=== PATIENT | female | born 1950 | race African-American/Black ===

== ENCOUNTER 2020-09-27 16:20 | Emergency (ER) | payer OTHER ==
[~2020-09-27] VITALS: Ht 157.5 cm; Wt 71.7 kg
[2020-09-27 18:59] VITALS: BP 111/71
== END 2020-09-27 18:59 | disposition home or self-care (01) ==
LOC: ER 16:21
DX: R09.89 Other specified symptoms and signs involving the circulatory and respiratory systems (principal); M47.812 Spondylosis without myelopathy or radiculopathy, cervical region; I70.90 Unspecified atherosclerosis
CPT/HCPCS: 70360; 70490

== ENCOUNTER 2021-01-07 23:16 | Emergency (ER) | payer OTHER ==
[~2021-01-07] VITALS: Ht 157.5 cm; Wt 69.4 kg
[2021-01-08] LABS: Hemoglobin 10.2 g/dL (12.2-16.2); Mean Corpuscular Hemoglobin 27.4 pg (28.0-32.0); Mean Corpuscular Volume 83.1 fL (80.0-100.0); Platelet Count (auto) 639 10^3/uL (140-450); Red Blood Cells 3.74 10^6/uL (4.0-5.20); Red Cell Distribution Width 15.8 % (11.8-14.3); White Blood Cell 7.9 10^3/uL (4.4-10.8)
[2021-01-08 00:02] LABS: INR 1.01 (0.9-1.15); Partial Thromboplastin Time 24.9 sec (23.0-31.2)
[2021-01-08 00:04] LABS: Band Neutrophils % (manual) 0; Blast Cells 0; Metamyelocytes % 0; Promyelocytes % 0; Reactive Lymphocytes 0
[2021-01-08 00:05] LABS: Chloride 99 mmol/L (98-107); Potassium 4.4 mmol/L (3.5-5.1); Sodium 134 mmol/L (136-145)
[2021-01-08 00:14] LABS: Alanine Aminotransferase 61 U/L (13-56); Albumin 3.4 g/dL (3.4-5.0); Alkaline Phosphatase 103 U/L (45-117); Anion Gap 6 (5-15); Aspartate Aminotransferase 72 U/L (15-37); BUN/Creatinine Ratio 19.4; Bilirubin, Total 0.2 mg/dL (0.2-1.0); Blood Urea Nitrogen 24 mg/dL (7-18); Calcium 11.4 mg/dL (8.5-10.1); Carbon Dioxide 29 mmol/L (21-32); GFR African American 55 mL/min; GFR Non-African American 45 mL/min; Glucose 101 mg/dL (74-106); Total Protein 8.2 g/dL (6.4-8.2)
[2021-01-08 00:29] LABS: Basophils % (manual) 1 (0.0-2.0); Eosinophils % (manual) 4 (0-7); Lymphocytes % (manual) 30 (10.0-50.0); Monocytes % (manual) 6 (0-12); Myelocytes % 1
[2021-01-08 01:03] VITALS: BP 175/92
== END 2021-01-08 01:08 | disposition left against medical advice (07) ==
LOC: ER 23:21
DX: R07.89 Other chest pain (principal); R06.02 Shortness of breath; Z53.21 Procedure and treatment not carried out due to patient leaving prior to being seen by health care provider
CPT/HCPCS: 36415; 71045; 80053; 83880; 84484; 85007; 85027; 85610; 85730

== ENCOUNTER 2022-08-25 01:47 | Emergency (ER) | payer OTHER ==
[~2022-08-25] VITALS: Ht 157.5 cm; Wt 73.7 kg
[2022-08-25 02:56] LABS: Basophils # (auto) 0.1 10 ^3/uL (0-0.2); Basophils % (auto) 1.8 % (0.0-2.0); Eosinophils # (auto) 0.6 10 ^3/uL (0-0.8); Eosinophils % (auto) 8.5 % (0.0-7.0); Hematocrit 32.1 % (36.0-46.0); Hemoglobin 10.7 g/dL (12.2-16.2); Lymphocytes # (auto) 1.8 10 ^3/uL (0.4-5.4); Lymphocytes % (auto) 24.3 % (10.0-50.0); Mean Corpuscular Hemoglobin 28.9 pg (28.0-32.0); Mean Corpuscular Hgb Conc. 33.4 g/dL (32.0-36.0); Mean Corpuscular Volume 86.6 fL (80.0-100.0); Monocytes # (auto) 0.8 10 ^3/uL (0-1.3); Neutrophils # (auto) 4.1 10 ^3/uL (1.6-8.6); Neutrophils % (auto) 55.4 % (37.0-80.0); Red Blood Cells 3.71 10^6/uL (4.0-5.20); Red Cell Distribution Width 15.6 % (11.8-14.3); White Blood Cell 7.5 10^3/uL (4.4-10.8)
[2022-08-25 03:12] LABS: INR 0.97 (0.9-1.15); Partial Thromboplastin Time 24.7 sec (24.6-33.4)
[2022-08-25 03:35] LABS: Albumin 3.6 g/dL (3.4-5.0); BUN/Creatinine Ratio 24.6; Magnesium 2.4 mg/dL (1.6-2.6); Potassium 3.9 mmol/L (3.5-5.1)
[2022-08-25 03:38] LABS: Bilirubin, Total 0.2 mg/dL (0.2-1.0); Total Protein 7.7 g/dL (6.4-8.2)
[2022-08-25 08:11] VITALS: BP 132/84
== END 2022-08-25 08:12 | disposition home or self-care (01) ==
LOC: ER 01:47
DX: R07.89 Other chest pain (principal); I10 Essential (primary) hypertension
CPT/HCPCS: 36415; 71046; 80053; 83735; 83880; 84484; 85025; 85610; 85730; 93005; 99285; J7030

== ENCOUNTER 2023-06-22 12:07 | Inpatient (IN) | payer OTHER ==
[~2023-06-22] VITALS: Ht 157.5 cm; Wt 75.9 kg
[2023-06-22 12:44] LABS: Basophils # (auto) 0.1 10 ^3/uL (0-0.2); Basophils % (auto) 1.3 % (0.0-2.0); Eosinophils # (auto) 0.5 10 ^3/uL (0-0.8); Eosinophils % (auto) 7.7 % (0.0-7.0); Hematocrit 34.2 % (36.0-46.0); Hemoglobin 11.1 g/dL (12.2-16.2); Lymphocytes # (auto) 1.9 10 ^3/uL (0.4-5.4); Lymphocytes % (auto) 30.6 % (10.0-50.0); Mean Corpuscular Hemoglobin 28.4 pg (28.0-32.0); Mean Corpuscular Hgb Conc. 32.5 g/dL (32.0-36.0); Mean Corpuscular Volume 87.3 fL (80.0-100.0); Monocytes # (auto) 0.6 10 ^3/uL (0-1.3); Monocytes % (auto) 9.6 % (0.0-12.0); Neutrophils # (auto) 3.1 10 ^3/uL (1.6-8.6); Neutrophils % (auto) 50.8 % (37.0-80.0); Red Blood Cells 3.91 10^6/uL (4.0-5.20); Red Cell Distribution Width 15.7 % (11.8-14.3); White Blood Cell 6.2 10^3/uL (4.4-10.8)
[2023-06-22] MEDS ORDERED: ASPirin 81 mg TAB PO ONE (13:00)
[2023-06-22] MEDS ORDERED: NITROGLYCERIN 0.2MG/HR TOPICAL PATCH TD ONE (13:00)
[2023-06-22 13:01] LABS: Albumin 3.8 g/dL (3.4-5.0); Calcium 9.2 mg/dL (8.5-10.1); Potassium 4.2 mmol/L (3.5-5.1)
[2023-06-22 13:04] LABS: BUN/Creatinine Ratio 22.1 (10.0-20.0); Bilirubin, Total 0.3 mg/dL (0.2-1.0); Total Protein 7.4 g/dL (6.4-8.2)
[2023-06-22] MEDS ORDERED: NITROGLYCERIN 2% OINT 1GM PKG TD ONE (13:15)
[2023-06-22 13:52] LABS: Urine Bacteria FEW /hpf (None Seen); Urine Blood Negative /uL (Negative); Urine Clarity Clear (Clear); Urine Color Colorless (Yellow); Urine Protein, UAD Negative (Negative); Urine Specific Gravity 1.008 (1.001-1.035); Urine Urobilinogen Normal (Negative); Urine WBC 5 /hpf (0 - 5)
[2023-06-22] MEDS ORDERED: DAPA1TAB4 PO (14:38)
[2023-06-22] MEDS ORDERED: ATOR10TA PO (14:38)
[2023-06-22] MEDS ORDERED: cefTRIAXone 1GM/50ML D5W 50 ML IV ONE (14:45)
[2023-06-22 14:47] VITALS: PULSE 85; RESP 18; O2SAT 95
[2023-06-22] MEDS ORDERED: MORPHINE SULFATE 4 MG/ML SYR/VIAL IV PRN (15:00)
[2023-06-22] MEDS ORDERED: NITROGLYCERIN 0.4 MG SL TAB SL PRN (15:00)
[2023-06-22] MEDS ORDERED: ACETAMINOPHEN 325 MG TAB PO PRN (15:00)
[2023-06-22] MEDS ORDERED: ONDANSETRON HCL 4 MG/2 ML VIAL IV PRN (15:00)
[2023-06-22 15:18] LABS: INR 0.98 (0.9-1.15); Partial Thromboplastin Time 27.9 SEC (24.5-34.5); Prothrombin Time 10.3 sec (9.3-11.8)
[2023-06-22 16:13] LABS: INR 0.99 (0.9-1.15); Prothrombin Time 10.4 sec (9.3-11.8)
[2023-06-22] MEDS: ATORVASTATIN 20 MG TAB PO SCH (18:07)
[2023-06-22] MEDS: PANTOPRAZOLE 40 MG TAB PO SCH (22:10)
[2023-06-22 23:21] VITALS: PULSE 91; RESP 20; O2SAT 94
[2023-06-23 06:18] LABS: Basophils # (auto) 0.1 10 ^3/uL (0-0.2); Basophils % (auto) 1.6 % (0.0-2.0); Eosinophils # (auto) 0.5 10 ^3/uL (0-0.8); Eosinophils % (auto) 6.3 % (0.0-7.0); Hematocrit 33.8 % (36.0-46.0); Hemoglobin 10.9 g/dL (12.2-16.2); Lymphocytes # (auto) 2.4 10 ^3/uL (0.4-5.4); Lymphocytes % (auto) 30.3 % (10.0-50.0); Mean Corpuscular Hemoglobin 28.5 pg (28.0-32.0); Mean Corpuscular Hgb Conc. 32.3 g/dL (32.0-36.0); Mean Corpuscular Volume 88.2 fL (80.0-100.0); Monocytes # (auto) 0.8 10 ^3/uL (0-1.3); Monocytes % (auto) 9.8 % (0.0-12.0); Neutrophils # (auto) 4.1 10 ^3/uL (1.6-8.6); Nucleated Red Blood Cells % 0.1 %; Red Blood Cells 3.83 10^6/uL (4.0-5.20); Red Cell Distribution Width 16.1 % (11.8-14.3); White Blood Cell 7.9 10^3/uL (4.4-10.8)
[2023-06-23 06:29] LABS: Potassium 4.1 mmol/L (3.5-5.1)
[2023-06-23 06:39] LABS: Albumin 3.6 g/dL (3.4-5.0); BUN/Creatinine Ratio 17.6 (10.0-20.0); Bilirubin, Total 0.4 mg/dL (0.2-1.0); Calcium 9.2 mg/dL (8.5-10.1); Total Protein 7.6 g/dL (6.4-8.2)
[2023-06-23 08:00] VITALS: PULSE 85; RESP 14; O2SAT 95
[2023-06-23] MEDS: DOCUSATE SOD 100 MG CAP PO SCH (11:20)
[2023-06-23] MEDS: cefTRIAXone 1GM/50ML D5W 50 ML IV SCH (11:20)
[2023-06-23] MEDS: HCTZ 25 MG TAB PO SCH (11:21)
[2023-06-23] MEDS: PANTOPRAZOLE 40 MG TAB PO SCH ×2 (11:23→22:20)
[2023-06-23] MEDS: EMPAGLIFLOZIN 10 MG TAB PO SCH (11:23)
[2023-06-23] MEDS: ASPirin 81 mg TAB PO SCH (11:24)
[2023-06-23] MEDS: VALSARTAN 80 MG TAB PO SCH (11:25)
[2023-06-23] MEDS ORDERED: CALCIUM CARB 500 MG CHEW TAB PO PRN (13:45)
[2023-06-23 17:00] VITALS: BP 117/73; PULSE 85; RESP 17; TEMP 98.3; O2SAT 94
[2023-06-23] MEDS ORDERED: VALS160T53 PO (19:18)
[2023-06-23] MEDS ORDERED: ATOR10TA PO (19:18)
[2023-06-23] MEDS ORDERED: DAPA1TAB4 PO (19:23)
[2023-06-23] MEDS ORDERED: DIPH25CA66 PO (19:23)
[2023-06-23] MEDS ORDERED: IBUP-1455 PO (19:23)
[2023-06-23] MEDS ORDERED: MELA3TAB27 PO (19:23)
[2023-06-23] MEDS: ATORVASTATIN 20 MG TAB PO SCH (19:44)
[2023-06-23 20:00] VITALS: PULSE 89
[2023-06-23] MEDS ORDERED: MILK OF MAGNESIA 30ML SUSP PO PRN (20:30)
[2023-06-23 22:00] VITALS: BP 129/85; PULSE 92; RESP 14; TEMP 98.3; O2SAT 95
[2023-06-24 05:00] VITALS: BP 121/80; PULSE 90; RESP 14; TEMP 98.2; O2SAT 95
[2023-06-24 08:00] VITALS: BP 117/70; PULSE 92; RESP 16; TEMP 97.8; O2SAT 93
[2023-06-24] MEDS: cefTRIAXone 1GM/50ML D5W 50 ML IV SCH (09:48)
[2023-06-24] MEDS: HCTZ 25 MG TAB PO SCH (09:54)
[2023-06-24] MEDS: EMPAGLIFLOZIN 10 MG TAB PO SCH (09:54)
[2023-06-24] MEDS: VALSARTAN 80 MG TAB PO SCH (09:54)
[2023-06-24] MEDS: PANTOPRAZOLE 40 MG TAB PO SCH ×2 (09:54→21:39)
[2023-06-24] MEDS: ASPirin 81 mg TAB PO SCH (09:54)
[2023-06-24] MEDS: DOCUSATE SOD 100 MG CAP PO SCH (09:55)
[2023-06-24] MEDS ORDERED: SUCRALFATE 1 GM TAB PO SCH (10:00)
[2023-06-24 12:00] VITALS: BP 120/75; PULSE 95; RESP 16; TEMP 97.9; O2SAT 97
[2023-06-24] MEDS ORDERED: LIDOCAINE VISCOUS 2% 15ML UD ONE (13:19)
[2023-06-24] MEDS ORDERED: MIDAZOLAM HCL 2MG/2ML 2ml VIAL (1mg/ml) ONE (13:20)
[2023-06-24] MEDS ORDERED: fentaNYL CITRATE 100 MCG/2 ML VL ONE (13:20)
[2023-06-24] MEDS: diphenhdrAMINE HCL 50 MG/1 ML VL ONE ×2 (16:09→16:10)
[2023-06-24 16:22] VITALS: O2SAT 99
[2023-06-24] MEDS: ATORVASTATIN 20 MG TAB PO SCH (18:07)
[2023-06-24] MEDS: SUCRALFATE 1 GM/10 ML ORAL SUSP PO SCH ×2 (18:07→21:38)
[2023-06-24 20:00] VITALS: PULSE 88; O2SAT 93
[2023-06-24 22:00] VITALS: BP 99/63; PULSE 84; RESP 16; TEMP 98.8; O2SAT 96
[2023-06-25 05:00] VITALS: BP 117/64; PULSE 81; RESP 17; TEMP 98; O2SAT 95
[2023-06-25] MEDS: SUCRALFATE 1 GM/10 ML ORAL SUSP PO SCH ×2 (05:59→13:04)
[2023-06-25 08:00] VITALS: BP 110/69; PULSE 84; PULSE 94; RESP 16; TEMP 97.9; O2SAT 97
[2023-06-25] MEDS: cefTRIAXone 1GM/50ML D5W 50 ML IV SCH (09:31)
[2023-06-25] MEDS: PANTOPRAZOLE 40 MG TAB PO SCH (09:32)
[2023-06-25] MEDS: DOCUSATE SOD 100 MG CAP PO SCH (09:32)
[2023-06-25] MEDS: HCTZ 25 MG TAB PO SCH (09:32)
[2023-06-25] MEDS: VALSARTAN 80 MG TAB PO SCH (09:32)
[2023-06-25] MEDS: EMPAGLIFLOZIN 10 MG TAB PO SCH (09:32)
[2023-06-25 12:00] VITALS: BP 138/79; PULSE 86; RESP 16; TEMP 97.8; O2SAT 92
[2023-06-25] MEDS ORDERED: PANT40T PO (12:49)
[2023-06-25] MEDS ORDERED: SUCR1SUS26 PO (12:49)
[2023-06-25] MEDS ORDERED: LEVO500T91 PO (12:55)
[2023-06-25 13:12] VITALS: BP 110/69; TEMP 36.6
== END 2023-06-25 14:26 | disposition home or self-care (01) | DRG 311 ==
LOC: ER 12:07 → EDBD 12:07 → TELE 15:16 → TELE-WESTW 06-23 15:49
PROVIDERS: ADMIT Internal Medicine; ATTEND Internal Medicine
PROC: 05HY33Z Insertion of Infusion Device into Upper Vein, Percutaneous Approach (ICD-10-PCS; principal; 2023-06-23)
PROC: B54MZZA Ultrasonography of Right Upper Extremity Veins, Guidance (ICD-10-PCS; 2023-06-23)
PROC: 0DB98ZX Excision of Duodenum, Via Natural or Artificial Opening Endoscopic, Diagnostic (ICD-10-PCS; 2023-06-24)
PROC: 0DB68ZX Excision of Stomach, Via Natural or Artificial Opening Endoscopic, Diagnostic (ICD-10-PCS; 2023-06-24)
DX: I24.9 Acute ischemic heart disease, unspecified (principal); N30.00 Acute cystitis without hematuria; N17.9 Acute kidney failure, unspecified; D64.9 Anemia, unspecified; E78.5 Hyperlipidemia, unspecified; N18.9 Chronic kidney disease, unspecified; K44.9 Diaphragmatic hernia without obstruction or gangrene; K25.9 Gastric ulcer, unspecified as acute or chronic, without hemorrhage or perforation; K21.9 Gastro-esophageal reflux disease without esophagitis; I12.9 Hypertensive chronic kidney disease with stage 1 through stage 4 chronic kidney disease, or unspecified chronic kidney disease; Z82.5 Family history of asthma and other chronic lower respiratory diseases; Z90.49 Acquired absence of other specified parts of digestive tract; K29.70 Gastritis, unspecified, without bleeding
CPT/HCPCS: 36415; 43239; 71045; 76705; 78452; 80053; 81001; 83735; 84484; 85025; 85610; 85730; 87086; 93005; 93017; 93306; G0378; J0696; J2250